=== PATIENT | female | born 1975 | race Caucasian/White ===

== ENCOUNTER 2018-12-20 05:15 | Day surgery (SDC) | payer BC, OTHER ==
[2018-12-14 17:12] VITALS: BMI 30.2
[2018-12-20] MEDS ORDERED: ACETAMINOPHEN 325 MG TABLET (FP) PO PRN (08:10)
[2018-12-20] MEDS ORDERED: oxyCODONE HCL 5 MG TABLET PO PRN (08:10)
[2018-12-20] MEDS ORDERED: IBUPROFEN 400 MG TABLET (FP) PO PRN (08:10)
--- NOTE | 2018-12-20 08:12 | HP ---
History & Physical Update - History History: No Change - Physical Physical: No Change - Assessment Assessment: No Change - Plan Plan: No Change (No change in HP)
[2018-12-20] MEDS ORDERED: MIDAZOLAM HCL 2 MG/2 ML SINGLE DOSE VIAL ONE (13:01)
[2018-12-20] MEDS ORDERED: DEXAMETHASONE SOD PHOSPHATE 4 MG/1 ML VIAL ONE (13:26)
[2018-12-20] MEDS ORDERED: PROPOFOL 20 ML ONE (13:26)
[2018-12-20] MEDS ORDERED: ceFAZolin SODIUM 1 GM VIAL ONE (13:32)
[2018-12-20] MEDS ORDERED: ceFAZolin SODIUM 1 GM VIAL IVPB ONE (13:34)
--- NOTE | 2018-12-20 15:12 | OP ---
Operative Note - Note: Operative Date: 12/20/18 Pre-Operative Diagnosis: submucosal myoma. endometrial polyps Operation: Hyateroscopic mYomectomy. Suction DC Post-Operative Diagnosis: Same as Pre-op Surgeon: Monse Arora Anesthesia: General Estimated Blood Loss (mls): 10 Operative Report Dictated: Yes
[2018-12-20] MEDS ORDERED: LACTATED RINGERS SOLUTION 1,000 ML IV SCH (15:15)
[2018-12-20 17:15] VITALS: BP 122/79; PULSE 68; TEMP 97.2
--- NOTE | 2018-12-20 17:42 | OP ---
DATE OF OPERATION: 12/20/2018 PREOPERATIVE DIAGNOSIS: Submucosal myoma and endometrial polyps. OPERATION: Hysteroscopic myomectomy, suction dilation and curettage. POSTOPERATIVE DIAGNOSIS: Submucosal myoma and endometrial polyps. SURGEON: Monse Arora MD ANESTHESIA: General. ESTIMATED BLOOD LOSS: 10 mL. DESCRIPTION OF PROCEDURE: The patient was taken to the operating room and placed in dorsal lithotomy position, prepped and draped in the usual sterile fashion. A time-out was performed in accordance with hospital regulation. Speculum was placed in the vagina. Anterior lip of the cervix was grasped with a single-tooth tenaculum. The cervix was then dilated to accommodate the operative hysteroscope. Visualization revealed endometrial polyps and submucosal myoma. Cautery and cutting of the submucosal polyps and the submucosal myoma were then done for a clean endometrial cavity. Numerous polyps were seen and removed, and the submucosal myoma was seen, but the fundus of the uterus was carved out, type 1 submucosal myoma. After sufficient cutting and cautery of the endometrial cavity, suction dilation and curettage was then performed. The patient tolerated the procedure well. All instruments were then removed. Estimated blood loss was 10 mL. The patient was taken to the recovery room in stable condition. Hailey [id number]
--- NOTE | 2018-12-22 17:00 | PATH ---
Surgical Pathology Report Patient Name: SUN MURDOCK [facility]. Rec. #: [id number] /Age/Gender: 1975 (Age: 43) / F Account: [id number] Location: [facility] Taken: 12/20/2018 Received: 12/21/2018 Reported: 12/22/2018 Physicians: Monse Arora M.D. Specimen(s) Received FIBROID AND POLYPS Clinical History Fibroids/polyps Final Diagnosis POLYP/FIBROID, HYSTEROSCOPIC MYOMECTOMY AND SUCTION DILATION AND CURETTAGE: FRAGMENTS OF ENDOMETRIAL POLYP, PROLIFERATIVE ENDOMETRIUM, RARE BUNDLES OF SMOOTH MUSCLE SUGGESTIVE OF SUBMUCOSAL LEIOMYOMA, AND SCANT BENIGN CERVICAL SQUAMOUS MUCOSA. Electronically Signed Radha Workman M.D. Gross Description Received in formalin labeled "polyp/fibroid," is a 2.4 x 1.8 x 0.3 cm aggregate of parkinson, firm to soft tissue fragments. The formalin is filtered and the specimen is entirely submitted in 2 cassettes. /12/21/2018 saudi12/21/2018
== END 2018-12-20 16:15 | disposition home or self-care (01) ==
LOC: JASU-SURG 05:15
PROVIDERS: ATTEND Obstetrics & Gynecology
PROC: 0UDB7ZX Extraction of Endometrium, Via Natural or Artificial Opening, Diagnostic (ICD-10-PCS; 2018-12-20)
PROC: 0UJD8ZZ Inspection of Uterus and Cervix, Via Natural or Artificial Opening Endoscopic (ICD-10-PCS; 2018-12-20)
PROC: 0UB98ZZ Excision of Uterus, Via Natural or Artificial Opening Endoscopic (ICD-10-PCS; principal; 2018-12-20 12:20)
PROC: 0UB97ZX Excision of Uterus, Via Natural or Artificial Opening, Diagnostic (ICD-10-PCS; 2018-12-20 12:20)
DX: D25.0 Submucous leiomyoma of uterus (principal); N84.0 Polyp of corpus uteri
CPT/HCPCS: 84703; 88305-TC; 94760